=== PATIENT | female | born 1980 | race African-American/Black ===

== ENCOUNTER → 2016-08-04 | Outpatient (CLI) | payer BC ==
[~2016-08-04] MED LIST: ADVIL COLD & S1 EAC1 PO; APAP500 PO; AUGMENTIN 875-1 EACH PO; BENADRYL25 MG; BENADRYL25 MG PO; COMPAZINE10 MG PO; FIORICET 50-321 EACH PO; IBUPROFEN 800800 M1 PO; IBUPROFEN 800800 MG PO; NORCO 5-325 TA1 EACH PO; ORTHO EVRA PAT1 EACH TD; PEPCID40 MG PO; PERCOCET 5-3251 EACH; PREDNISONE50 MG PO; TOBRAMYCIN SULFA5 ML OP
== END ==
LOC: RAD 10:12
DX: M25.562 Pain in left knee (principal)